=== PATIENT | female | born 1980 | race African-American/Black ===

== ENCOUNTER → 2021-07-23 | Outpatient (CLI) | payer OTHER ==
--- NOTE | 2021-07-23 13:57 | RAD ---
EXAMINATION: US EXT NON VASC LEFT (SOFT TISSUE ULTRASOUND OF THE LEFT KNEE) CLINICAL HISTORY: Nontender palpable nodule superolateral left knee TECHNIQUE: Grayscale and power Doppler ultrasound imaging was performed in the area of concern. COMPARISON: None FINDINGS/ IMPRESSION: No soft tissue mass or collection visualized in the area of concern. Electronically signed by: Herve Beauchamp DO (07/23/2021 1:55 PM) ELDER
== END ==
LOC: US 12:29
PROVIDERS: ATTEND Nurse Practitioner Family
DX: M25.862 Other specified joint disorders, left knee (principal)
CPT/HCPCS: 76881

== ENCOUNTER → 2022-02-13 | Outpatient (CLI) | payer OTHER ==
--- NOTE | 2022-02-13 16:52 | RAD ---
EXAMINATION: US TRANSVAGINAL, 02/13/2022 2:59 PM CLINICAL INDICATION: Elevated estrogen TECHNIQUE: Grayscale, color and spectral Doppler ultrasound images of the pelvis via transvaginal fadi alfaro. COMPARISON: None. FINDINGS: The uterus measures 10.6 x 6.9 x 5.5 cm. The endometrial stripe is obscured by an intrauterine device that is in appropriate position. No myometrial mass. The right ovary measures 3.6 x 2.2 x 2.5 cm. The left ovary measures 4.2 x 3.7 x 2.9 cm. There is nor mal ovarian blood flow bilaterally. There is a 2.6 x 1.4 x 1.6 cm anechoic simple cyst in the right o vary. There is a 3.0 x 2.6 x 3.1 cm anechoic simple cyst in the left ovary. No adnexal mass. Small amount of free fluid in the left adnexa. IMPRESSION: 1. Intrauterine device in appropriate position. The endometrium is obscured by the IUD. 2. Bilateral simple ovarian cysts measuring 2.6 on the right and 3.0 on the left. Electronically signed by: Maisha Pineda MD (02/13/2022 4:50 PM) [id number]
== END ==
LOC: US 14:55
PROVIDERS: ATTEND Nurse Practitioner Family
DX: N83.292 Other ovarian cyst, left side (principal); N83.291 Other ovarian cyst, right side; B48.8 Other specified mycoses
CPT/HCPCS: 76830